=== PATIENT | female | born 1985 | race Caucasian/White ===

== ENCOUNTER 2017-12-24 21:49 | Inpatient (IN) | payer SELFPAY ==
[~2017-12-24] VITALS: Ht 175.3 cm; Wt 74.8 kg
[~2017-12-24 21:49] MED LIST: CIPR500T2 PO; PYRI200T4 PO; Z.0.NO CURRENT MEDS
[2017-12-24 21:53] VITALS: BP 128/78; PULSE 123; RESP 18; TEMP 99; O2SAT 99
--- NOTE | 2017-12-24 22:07 | PD ---
HPI Chief Complaint: Injury Time Seen by Provider: 22:00 Travel History International Travel<30 days: No Contact w/Intl Traveler<30days: No Traveled to known affect area: No History of Present Illness HPI 32-year-old female presents to the ED for evaluation of 5 day history of left foot pain. Pain is rated 6/10, worsened by weightbearing and touch. The patient endorses a small wound on the plantar aspect of the foot but can recall no acute injury. She states that the day that the pain started [place] She was seen at the [facility] 3 days ago and provided with a prescription of Bactrim. She endorses compliance with the antibiotics but states that the pain has worsened. She now complains of redness of the foot as well. She denies fever, chills, nausea, vomiting, numbness, tingling, weakness, limitations to range of motion of the extremity. Unsure of last tetanus immunization. PFSH Past Medical History Blood Disorders: No Cancer: No Cardiovascular Problems: No Diminished Hearing: No Endocrine: No Genitourinary: No Immune Disorder: No Musculoskeletal: No Neurologic: No Psychiatric: No Reproductive: Yes (OVARIAN CYST) Respiratory: No Immunizations Current: Yes ?: Not Menopausal: No : 0 Para: 0 Ovarian Cysts: Yes Past Surgical History Abdominal Surgery: Yes AICD: No Gynecologic Surgery: Yes (2005&2005 CYSTS REMOVED FROM OVARIES) Joint Replacement: No Pacemaker: No Other Surgery: Yes Social History Alcohol Use: Yes (OCC.) Tobacco Use: Yes (1PPD) Substance Use: Yes (MARIJUANA) Allergies-Medications (Allergen,Severity, Reaction): Coded Allergies: No Known Allergies (Verified , 10/22/11) Reported Meds & Prescriptions Reported Meds & Active Scripts Active Cipro (Ciprofloxacin) 500 Mg Tab 500 Mg PO BID Pyridium (Phenazopyridine HCl) 200 Mg Tab 200 Mg PO Q8HPRN Reported No Current Meds (Miscellaneous Medication) Misc Review of Systems Except as stated in HPI: all other systems reviewed are Neg Physical Exam Narrative GENERAL: Well-nourished, well-developed hirsute white female no acute distress. SKIN: Focused skin assessment warm/dry. HEAD: Normocephalic. EYES: No scleral icterus. No injection or drainage. NECK: Supple, trachea midline. No JVD or lymphadenopathy. CARDIOVASCULAR: Regular rate and rhythm without murmurs, gallops, or rubs. RESPIRATORY: Breath sounds equal bilaterally. No accessory muscle use. GASTROINTESTINAL: Abdomen soft, non-tender, nondistended. MUSCULOSKELETAL: No cyanosis, or edema. FOCUSED LEFT LOWER EXTREMITY EXAM: 2+ DP pulse. There is a puncture wound on the lateral aspect of the dorsal surface of the foot. There is surrounding tender erythema. Erythema trails up the medial aspect of the foot. Patient retains full, active, painless ROM of the extremity. BACK: Nontender without obvious deformity. No CVA tenderness. Data Data Last Documented VS Vital Signs Date Time Temp Pulse Resp B/P (MAP) Pulse Ox O2 Delivery O2 Flow Rate FiO2 12/24/17 21:53 99.0 123 18 128/78 (95) 99 Room Air Orders Orders Sepsis Workup Initiated (12/24/17 ) Complete Blood Count With Diff (12/24/17 22:03) Comprehensive Metabolic Panel (12/24/17 22:03) Lactic Acid Sepsis Protocol (12/24/17 22:03) Urinalysis - C+S If Indicated (12/24/17 22:03) Blood Culture (12/24/17 22:03) Blood Glucose (12/24/17 22:03) Ecg Monitoring (12/24/17 22:03) Iv Access Insert/Monitor (12/24/17 22:03) Oximetry (12/24/17 22:03) Sodium Chlor 0.9% 1000 Ml Inj (Ns 1000 M (12/24/17 22:15) Foot, Complete (Qyt2dkn) (12/24/17 22:03) Acetaminophen (Tylenol) (12/24/17 22:15) Tetanus/Diphtheria Tox Adult (Tetanus/Di (12/24/17 22:15) Clindamycin 900 Mg/Ns Premix (Cleocin 90 (12/24/17 22:30) Doxycycline (Vibramycin) (12/24/17 22:30) Urine Culture (12/24/17 22:25) Labs Laboratory Tests Test 12/24/17 22:25 12/24/17 22:30 Urine Color YELLOW Urine Turbidity HAZY Urine pH 6.0 Urine Specific [place] 1.029 Urine Protein 30 mg/dL Urine Glucose (UA) NEG mg/dL Urine Ketones TRACE mg/dL Urine Occult Blood SMALL Urine Nitrite NEG Urine Bilirubin NEG Urine Urobilinogen 4.0 MG/DL Urine Leukocyte Esterase TRACE Urine RBC 3 /hpf Urine WBC 8 /hpf Urine Squamous Epithelial Cells 15 /hpf Urine Amorphous Sediment OCC Urine Hyaline Casts 14 /lpf Urine Mucus FEW /lpf Microscopic Urinalysis Comment CATH-CULTURE IND White Blood Count 12.3 TH/MM3 Red Blood Count 5.15 MIL/MM3 Hemoglobin 16.0 GM/DL Hematocrit 46.6 % Mean Corpuscular Volume 90.5 FL Mean Corpuscular Hemoglobin 31.1 PG Mean Corpuscular Hemoglobin Concent 34.4 % Red Cell Distribution Width 13.7 % Platelet Count 395 TH/MM3 Mean Platelet Volume 8.6 FL Neutrophils (%) (Auto) 60.9 % Lymphocytes (%) (Auto) 24.8 % Monocytes (%) (Auto) 11.6 % Eosinophils (%) (Auto) 1.8 % Basophils (%) (Auto) 0.9 % Neutrophils # (Auto) 7.5 TH/MM3 Lymphocytes # (Auto) 3.0 TH/MM3 Monocytes # (Auto) 1.4 TH/MM3 Eosinophils # (Auto) 0.2 TH/MM3 Basophils # (Auto) 0.1 TH/MM3 CBC Comment DIFF FINAL Differential Comment MDM Medical Decision Making Medical Screen Exam Complete: Yes Emergency Medical Condition: Yes Differential Diagnosis Puncture wound versus retained foreign body versus cellulitis versus failed outpatient treatment versus sepsis versus other Narrative Course 32-year-old female presents to the ED for evaluation of 5 day history of left foot pain. The patient endorses a small wound on the plantar aspect of the foot but can recall no acute injury. Possible seawater exposure. Seen at [facility], prescribed Bactrim, compliant with no improvement of symptoms. Unsure of last tetanus immunization. Temp 99.0. Pulse 123 on arrival. On exam there is a puncture wound on the plantar surface, lateral aspect of the left foot. There is surrounding tender erythema that trails up the medial aspect of the foot. Tetanus immunization was administered. IV was established. Patient was administered 1 L normal saline, 500 mg Tylenol by mouth. Blood cultures were obtained. Patient was administered 900 mg clindamycin IV and 100 mg doxycycline by mouth to cover for marine exposure. CBC, CMP, lactic acid, UA ordered and pending. Patient has failed outpatient treatment for cellulitis. She will be admitted for observation and continued IV antibiotics. The patient is agreeable with this plan. Patient signed out to Dr. Givens at end of shift. Please see her note for disposition. Carolyn Mccormick December 24, 2017 22:07
[2017-12-24] MEDS ORDERED: TETANUS/DIPHTHERIA TOXOID ADULT 0.5 ML VIAL IM ONE (22:15)
[2017-12-24] MEDS ORDERED: ACETAMINOPHEN 500 MG CPLT PO ONE (22:15)
[2017-12-24] MEDS ORDERED: SODIUM CHLOR 0.9% 1000 ML INJ 1,000 ML IV ONE (22:15)
[2017-12-24] MEDS ORDERED: DOXYCYCLINE HYCLATE 100 MG CAP PO ONE (22:30)
[2017-12-24] MEDS ORDERED: CLINDAMYCIN 900 MG/NS PREMIX 50 ML IV ONE (22:30)
[2017-12-24 22:47] LABS: AUTOMATED NEUTROPHIL # 7.5 TH/MM3 (1.8-7.7); BASOPHIL # 0.1 TH/MM3 (0-0.2); BASOPHIL % 0.9 % (0.0-2.0); EOSINOPHIL # 0.2 TH/MM3 (0-0.4); EOSINOPHIL % 1.8 % (0.0-4.0); HEMATOCRIT 46.6 % (35.0-46.0); LYMPH % 24.8 % (9.0-44.0); MEAN CELL VOLUME 90.5 FL (80.0-100.0); MEAN CORPUSCULAR HEMOGLOBIN 31.1 PG (27.0-34.0); MEAN CORPUSCULAR HGB CONC 34.4 % (32.0-36.0); MEAN PLATELET VOLUME 8.6 FL (7.0-11.0); MONO % 11.6 % (0.0-8.0); MONOCYTE # 1.4 TH/MM3 (0-0.9); NEUT % 60.9 % (16.0-70.0); PLATELET COUNT 395 TH/MM3 (150-450); RED BLOOD COUNT 5.15 MIL/MM3 (4.00-5.30); RED CELL DISTRIBUTION WIDTH 13.7 % (11.6-17.2); WHITE BLOOD COUNT 12.3 TH/MM3 (4.0-11.0)
[2017-12-24 22:49] LABS: AMORPHOUS SEDIMENT, URINE OCC; BLOOD, URINE SMALL (NEG); GLUCOSE,URINE NEG (NEG); HYALINE CAST, URINE 14 /lpf (RARE); KETONE, URINE TRACE mg/dL (NEG); MUCUS URINE FEW /lpf (OCC); NITRITE,URINE NEG (NEG); SQUAMOUS EPITHELIAL CELL URINE 15 /hpf (0-5); URINE COLOR YELLOW (YELLW/STRAW); URINE LEUKOCYTE ESTERASE TRACE (NEG)
[2017-12-24 22:53] LABS: BILIRUBIN, URINE NEG (NEG)
[2017-12-24 23:03] VITALS: RESP 18
[2017-12-24 23:10] LABS: ALKALINE PHOSPHATASE 105 U/L (45-117); TOTAL BILIRUBIN ADULT 0.2 MG/DL (0.2-1.0); TOTAL PROTEIN 7.5 GM/DL (6.4-8.2)
[2017-12-24 23:11] LABS: ALBUMIN 3.7 GM/DL (3.4-5.0); ALT (GPT) 47 U/L (10-53); AST (GOT) 38 U/L (15-37); BICARBONATE 22.4 MEQ/L (21.0-32.0); BLOOD UREA NITROGEN 15 MG/DL (7-18); CALCIUM 9.3 MG/DL (8.5-10.1); CHLORIDE 105 MEQ/L (98-107); CREATININE 1.09 MG/DL (0.50-1.00); GLOMERULAR FILTRATION RATE 58 ML/MIN (>89); GLUCOSE,RANDOM 118 MG/DL (74-106); SODIUM (NA) 137 MEQ/L (136-145)
--- NOTE | 2017-12-24 23:27 | RADRPT ---
EXAM DATE/TIME: 12/24/2017 22:33 [facility] COMPARISON: No previous studies available for comparison. INDICATIONS : Left foot pain, possible foreign body. MEDICAL HISTORY : None. SURGICAL HISTORY : None. ENCOUNTER: Initial ACUITY: 3 days PAIN SCORE: 7/10 LOCATION: Left foot, plantar surface. FINDINGS: Two view examination of the left foot demonstrates no soft tissue swelling, dislocation, or fracture. The calcaneus is intact. Bony mineralization is normal. CONCLUSION: Negative exam. No fracture. No radiopaque foreign body. Morales Raphael MD on December 24, 2017 at 23:25 Board Certified Radiologist. This report was verified electronically.
[2017-12-24 23:51] VITALS: BP 144/68; PULSE 92; RESP 16; TEMP 98.3; O2SAT 99
--- NOTE | 2017-12-24 23:54 | PD ---
Physical Exam Narrative Please see the mid-level provider note for full history and physical. I have evaluated the patient. Patient is on day 4 of antibiotics for a wound infection. Reports pain and increased swelling despite antibiotic. If this is a possible marine water exposure skin infection. She was given doxycycline and clindamycin. She is afebrile but was tachycardic. Labs show elevated white count and UTI with urine culture and blood cultures pending. Repeat heart rate 93. Patient will be admitted to the hospital for failing outpatient antibiotics. Data Data Last Documented VS Vital Signs Date Time Temp Pulse Resp B/P (MAP) Pulse Ox O2 Delivery O2 Flow Rate FiO2 12/24/17 23:51 98.3 92 16 144/68 (93) 99 Room Air Orders Orders Sepsis Workup Initiated (12/24/17 ) Complete Blood Count With Diff (12/24/17 22:03) Comprehensive Metabolic Panel (12/24/17 22:03) Lactic Acid Sepsis Protocol (12/24/17 22:03) Urinalysis - C+S If Indicated (12/24/17 22:03) Blood Culture (12/24/17 22:03) Blood Glucose (12/24/17 22:03) Ecg Monitoring (12/24/17 22:03) Iv Access Insert/Monitor (12/24/17 22:03) Oximetry (12/24/17 22:03) Sodium Chlor 0.9% 1000 Ml Inj (Ns 1000 M (12/24/17 22:15) Acetaminophen (Tylenol) (12/24/17 22:15) Tetanus/Diphtheria Tox Adult (Tetanus/Di (12/24/17 22:15) Clindamycin 900 Mg/Ns Premix (Cleocin 90 (12/24/17 22:30) Doxycycline (Vibramycin) (12/24/17 22:30) Urine Culture (12/24/17 22:25) Foot, Limited (2vws) (12/24/17 22:03) Admit Order (Ed Use Only) (12/24/17 23:58) Labs Laboratory Tests Test 12/24/17 22:25 12/24/17 22:30 Urine Color YELLOW Urine Turbidity HAZY Urine pH 6.0 Urine Specific [place] 1.029 Urine Protein 30 mg/dL Urine Glucose (UA) NEG mg/dL Urine Ketones TRACE mg/dL Urine Occult Blood SMALL Urine Nitrite NEG Urine Bilirubin NEG Urine Urobilinogen 4.0 MG/DL Urine Leukocyte Esterase TRACE Urine RBC 3 /hpf Urine WBC 8 /hpf Urine Squamous Epithelial Cells 15 /hpf Urine Amorphous Sediment OCC Urine Hyaline Casts 14 /lpf Urine Mucus FEW /lpf Microscopic Urinalysis Comment CATH-CULTURE IND White Blood Count 12.3 TH/MM3 Red Blood Count 5.15 MIL/MM3 Hemoglobin 16.0 GM/DL Hematocrit 46.6 % Mean Corpuscular Volume 90.5 FL Mean Corpuscular Hemoglobin 31.1 PG Mean Corpuscular Hemoglobin Concent 34.4 % Red Cell Distribution Width 13.7 % Platelet Count 395 TH/MM3 Mean Platelet Volume 8.6 FL Neutrophils (%) (Auto) 60.9 % Lymphocytes (%) (Auto) 24.8 % Monocytes (%) (Auto) 11.6 % Eosinophils (%) (Auto) 1.8 % Basophils (%) (Auto) 0.9 % Neutrophils # (Auto) 7.5 TH/MM3 Lymphocytes # (Auto) 3.0 TH/MM3 Monocytes # (Auto) 1.4 TH/MM3 Eosinophils # (Auto) 0.2 TH/MM3 Basophils # (Auto) 0.1 TH/MM3 CBC Comment DIFF FINAL Differential Comment Blood Urea Nitrogen 15 MG/DL Creatinine 1.09 MG/DL Random Glucose 118 MG/DL Total Protein 7.5 GM/DL Albumin 3.7 GM/DL Calcium Level 9.3 MG/DL Alkaline Phosphatase 105 U/L Aspartate Amino Transf (AST/SGOT) 38 U/L Alanine Aminotransferase (ALT/SGPT) 47 U/L Total Bilirubin 0.2 MG/DL Sodium Level 137 MEQ/L Potassium Level 4.5 MEQ/L Chloride Level 105 MEQ/L Carbon Dioxide Level 22.4 MEQ/L Anion Gap 10 MEQ/L Estimat Glomerular Filtration Rate 58 ML/MIN Lactic Acid Level 1.9 mmol/L [facility] Supervised Visit with [place]: Yes Sepsis Criteria SIRS Criteria (2 or more): Heart rate over 90, WBC > 12478, < 4000 or > 10% bands Sepsis Criteria (SIRS+source): Infect source susp/known Diagnosis Primary Impression: Cellulitis Qualified Codes: L03.116 - Cellulitis of left lower limb Additional Impression: Sepsis Admitting Information Admitting Physician Requests: Admit Condition: Stable Qiana Givens MD December 24, 2017 23:53
[2017-12-25] MEDS ORDERED: SODIUM CHLORIDE 0.9% FLUSH 10 ML FLUSH IV FLUSH PRN (00:30)
[2017-12-25] MEDS ORDERED: NALOXONE HCL 0.4 MG/ML AMP IV PUSH PRN (00:30)
[2017-12-25] MEDS ORDERED: ONDANSETRON HCL 4 MG/2 ML VIAL IVP PRN (00:30)
[2017-12-25] MEDS: SODIUM CHLOR 0.9% 1000 ML INJ 1,000 ML IV SCH ×2 (01:03→09:11)
[2017-12-25] MEDS: ACETAMINOPHEN 325 MG TAB PO PRN ×2 (01:07→06:55)
--- NOTE | 2017-12-25 02:15 | HHI.HP ---
[facility] No Primary Care Physician Admission Diagnosis sepsis, cellulitis failed outpatient meds Diagnoses: Travel History International Travel<30 Days: No Contact w/Intl Traveler <30 Da: No Traveled to Known Affected Are: No History of Present Illness 32-year-old female presents to the emergency department for evaluation of acutely worsening left foot pain. The patient reports she sustained an injury to her foot on Friday but is unsure of exactly what happened. She reports she was out on a boat that day and later on in the evening she developed redness and swelling around what appears to be a puncture site on the bottom of the left foot. The patient went to [facility] where she was given Bactrim. Despite compliance with the medication, the patient's foot continued to swell and currently is much more painful than prior. She reports she cannot put weight on it and has to walk on the ball of her foot. No chest pain or shortness of breath. No fever/chills. No abdominal pain. No nausea/vomiting/ diarrhea. No weakness/fatigue. Review of Systems Except as stated in HPI: all other systems reviewed are Neg Past Family Social History Past Medical History None Past Surgical History Laparotomy secondary to trauma Reported Medications Reported Meds & Active Scripts Active Cipro (Ciprofloxacin) 500 Mg Tab 500 Mg PO BID Pyridium (Phenazopyridine HCl) 200 Mg Tab 200 Mg PO Q8HPRN Reported No Current Meds (Miscellaneous Medication) Misc Allergies: Coded Allergies: No Known Allergies (Verified Adverse Reaction, Unknown, 12/25/17) Family History Negative for CAD/DM Social History Smokes 1 pack per day. Occasional alcohol. Positive marijuana. Physical Exam Vital Signs Vital Signs Date Time Temp Pulse Resp B/P (MAP) Pulse Ox O2 Delivery O2 Flow Rate FiO2 12/25/17 01:51 16 12/25/17 01:50 12/25/17 00:03 18 12/24/17 23:51 98.3 92 16 144/68 (93) 99 Room Air 12/24/17 23:03 18 12/24/17 21:53 99.0 123 18 128/78 (95) 99 Room Air Physical Exam GENERAL: female lying in bed SKIN: Area of erythema and swelling but is warm to the touch on the plantar aspect of the left foot with small puncture wound on the lateral side. HEAD: Atraumatic. Normocephalic. No temporal or scalp tenderness. EYES: Pupils equal round and reactive. Extraocular motions intact. No scleral icterus. No injection or drainage. ENT: Nose without bleeding, purulent drainage or septal hematoma. Throat without erythema, tonsillar hypertrophy or exudate. Uvula midline. Airway patent. NECK: Trachea midline. No JVD or lymphadenopathy. Supple, nontender, no meningeal signs. CARDIOVASCULAR: Regular rate and rhythm without murmurs, gallops, or rubs. RESPIRATORY: Clear to auscultation. Breath sounds equal bilaterally. No wheezes , rales, or rhonchi. GASTROINTESTINAL: Abdomen soft, non-tender, nondistended. No hepato-splenomegaly , or palpable masses. No guarding. MUSCULOSKELETAL: Extremities without clubbing, cyanosis, or edema. No joint tenderness, effusion, or edema noted. No calf tenderness. NEUROLOGICAL: Awake and alert. Cranial nerves II through XII intact. Motor and sensory grossly within normal limits. Normal speech. Laboratory Laboratory Tests Test 12/24/17 22:25 12/24/17 22:30 Urine Color YELLOW Urine Turbidity HAZY Urine pH 6.0 Urine Specific [place] 1.029 Urine Protein 30 Urine Glucose (UA) NEG Urine Ketones TRACE Urine Occult Blood SMALL Urine Nitrite NEG Urine Bilirubin NEG Urine Urobilinogen 4.0 Urine Leukocyte Esterase TRACE Urine RBC 3 Urine WBC 8 Urine Squamous Epithelial Cells 15 Urine Amorphous Sediment OCC Urine Hyaline Casts 14 Urine Mucus FEW Microscopic Urinalysis Comment CATH-CULTURE IND White Blood Count 12.3 Red Blood Count 5.15 Hemoglobin 16.0 Hematocrit 46.6 Mean Corpuscular Volume 90.5 Mean Corpuscular Hemoglobin 31.1 Mean Corpuscular Hemoglobin Concent 34.4 Red Cell Distribution Width 13.7 Platelet Count 395 Mean Platelet Volume 8.6 Neutrophils (%) (Auto) 60.9 Lymphocytes (%) (Auto) 24.8 Monocytes (%) (Auto) 11.6 Eosinophils (%) (Auto) 1.8 Basophils (%) (Auto) 0.9 Neutrophils # (Auto) 7.5 Lymphocytes # (Auto) 3.0 Monocytes # (Auto) 1.4 Eosinophils # (Auto) 0.2 Basophils # (Auto) 0.1 CBC Comment DIFF FINAL Differential Comment Blood Urea Nitrogen 15 Creatinine 1.09 Random Glucose 118 Total Protein 7.5 Albumin 3.7 Calcium Level 9.3 Alkaline Phosphatase 105 Aspartate Amino Transf (AST/SGOT) 38 Alanine Aminotransferase (ALT/SGPT) 47 Total Bilirubin 0.2 Sodium Level 137 Potassium Level 4.5 Chloride Level 105 Carbon Dioxide Level 22.4 Anion Gap 10 Estimat Glomerular Filtration Rate 58 Lactic Acid Level 1.9 Date/Time Source Procedure Growth Status 12/24/17 22:30 Blood Peripheral Aerobic Blood Culture Pending Received 12/24/17 22:30 Blood Peripheral Anaerobic Blood Culture Pending Received 12/24/17 22:25 Urine Catheterized Urine Urine Culture Pending Received Result Diagram: 12/24/17222912/24/172229 Earle VTE Risk Assessment Earle VTE Risk Assessment: No/Low Risk (score <= 1) Caprini Risk Assessment Model Point Value = 1 Point Value = 2 Point Value = 3 Point Value = 5 Age 41-60 Minor surgery BMI > 25 kg/m2 Swollen legs Varicose veins or History of unexplained or recurrent spontaneous Oral contraceptives or hormone replacement Sepsis (< 1 month) Serious lung disease, including pneumonia (< 1 month) Abnormal pulmonary function Acute myocardial infarction Congestive heart failure (< 1 month) History of inflammatory bowel disease Medical patient at bed rest Age 61-74 Arthroscopic surgery Major open surgery (> 45 min) Laparoscopic surgery (> 45 min) Malignancy Confined to bed (> 72 hours) Immobilizing plaster cast Central venous access Age >= 75 History of VTE Family history of VTE Factor V Leiden Prothrombin [id number] Lupus anticoagulant Anticardiolipin antibodies Elevated serum homocysteine Heparin-induced thrombocytopenia Other congenital or acquired thrombophilia Stroke (< 1 month) Elective arthroplasty Hip, pelvis, or leg fracture Acute spinal cord injury (< 1 month) Prophylaxis Regimen Total Risk Factor Score Risk Level Prophylaxis Regimen 0-1 Low Early ambulation 2 Moderate Order ONE of the following: *Sequential Compression Device (SCD) *Heparin 5000 units SQ BID 3-4 Higher Order ONE of the following medications: *Heparin 5000 units SQ TID *Enoxaparin/Lovenox 40 mg SQ daily (WT < 150 kg, CrCl > 30 mL/min) *Enoxaparin/Lovenox 30 mg SQ daily (WT < 150 kg, CrCl > 10-29 mL/min) *Enoxaparin/Lovenox 30 mg SQ BID (WT < 150 kg, CrCl > 30 mL/min) AND/OR *Sequential Compression Device (SCD) 5 or more Highest Order ONE of the following medications: *Heparin 5000 units SQ TID (Preferred with Epidurals) *Enoxaparin/Lovenox 40 mg SQ daily (WT < 150 kg, CrCl > 30 mL/min) *Enoxaparin/Lovenox 30 mg SQ daily (WT < 150 kg, CrCl > 10-29 mL/min) *Enoxaparin/Lovenox 30 mg SQ BID (WT < 150 kg, CrCl > 30 mL/min) AND *Sequential Compression Device (SCD) Assessment and Plan Assessment and Plan Assessment/plan: 1. Cellulitis but failed outpatient treatment/sepsis Patient with leukocytosis and tachycardia Status post Bactrim 4 days Cipro/doxy for possible marine exposure coverage Ultrasound of the foot pending to rule out deep abscess Blood cultures pending IV fluid hydration 2. UTI Antibiotics as above UA consistent with urinary tract infection Urine culture pending FEN Regular diet Electrolytes: Monitor and replete as needed NS at 100 cc/hour Physician Certification 2 Midnight Certification Type: Admission for Inpatient Services Order for Inpatient Services The services are ordered in accordance with Medicare regulations or non- Medicare payer requirements, as applicable. In the case of services not specified as inpatient-only, they are appropriately provided as inpatient services in accordance with the 2-midnight benchmark. Estimated LOS (days): 2 2 days is the estimated time the patient will need to remain in the hospital, assuming treatment plan goals are met and no additional complications. Post-Hospital Plan: Not yet determined Erinn Fernandes MD December 25, 2017 02:15
[2017-12-25 04:00] VITALS: BP 102/50; PULSE 67; RESP 16; TEMP 97.6; O2SAT 97
[2017-12-25 04:15] LABS: AUTOMATED NEUTROPHIL # 6.3 TH/MM3 (1.8-7.7); BASOPHIL # 0.1 TH/MM3 (0-0.2); BASOPHIL % 0.9 % (0.0-2.0); EOSINOPHIL # 0.3 TH/MM3 (0-0.4); EOSINOPHIL % 2.2 % (0.0-4.0); HEMATOCRIT 41.7 % (35.0-46.0); HEMOGLOBIN 14.5 GM/DL (11.6-15.3); LYMPH % 32.3 % (9.0-44.0); LYMPHOCYTE # 3.9 TH/MM3 (1.0-4.8); MEAN CELL VOLUME 90.8 FL (80.0-100.0); MEAN CORPUSCULAR HEMOGLOBIN 31.6 PG (27.0-34.0); MEAN CORPUSCULAR HGB CONC 34.8 % (32.0-36.0); MEAN PLATELET VOLUME 8.6 FL (7.0-11.0); MONO % 12.8 % (0.0-8.0); MONOCYTE # 1.6 TH/MM3 (0-0.9); NEUT % 51.8 % (16.0-70.0); PLATELET COUNT 331 TH/MM3 (150-450); RED BLOOD COUNT 4.59 MIL/MM3 (4.00-5.30); RED CELL DISTRIBUTION WIDTH 13.6 % (11.6-17.2); WHITE BLOOD COUNT 12.2 TH/MM3 (4.0-11.0)
[2017-12-25 05:07] LABS: ALBUMIN 3.2 GM/DL (3.4-5.0); ALKALINE PHOSPHATASE 91 U/L (45-117); ALT (GPT) 56 U/L (10-53); AST (GOT) 56 U/L (15-37); BICARBONATE 23.4 MEQ/L (21.0-32.0); BLOOD UREA NITROGEN 13 MG/DL (7-18); CALCIUM 8.5 MG/DL (8.5-10.1); CHLORIDE 108 MEQ/L (98-107); GLOMERULAR FILTRATION RATE 73 ML/MIN (>89); GLUCOSE,RANDOM 110 MG/DL (74-106); SODIUM (NA) 140 MEQ/L (136-145); TOTAL BILIRUBIN ADULT 0.2 MG/DL (0.2-1.0); TOTAL PROTEIN 6.6 GM/DL (6.4-8.2)
[2017-12-25 08:00] VITALS: BP 125/85; PULSE 74; RESP 17; TEMP 97.3; O2SAT 98
[2017-12-25] MEDS: SODIUM CHLORIDE 0.9% FLUSH 10 ML FLUSH IV FLUSH SCH ×2 (09:00→20:07)
[2017-12-25] MEDS: DOXYCYCLINE HYCLATE 100 MG TAB PO SCH ×2 (09:06→20:07)
[2017-12-25] MEDS: CLINDAMYCIN 600 MG/NS PREMIX 50 ML IV SCH ×2 (09:07→16:24)
--- NOTE | 2017-12-25 09:14 | RADRPT ---
EXAM DATE/TIME: 12/25/2017 08:14 [facility] COMPARISON: No previous studies available for comparison. INDICATIONS : Left foot fluid collection. MEDICAL HISTORY : Ovarian cysts. Tobacco use. SURGICAL HISTORY : Bowel surgery. Ovarian cysts removed. ENCOUNTER: Initial ACUITY: 1 day PAIN SCORE: 0/10 LOCATION: Left foot. AREA EVALUATED: Bottom of left foot. FINDINGS: The plantar soft tissues of the foot was scanned. There is soft tissue thickening and a focal fluid collection with irregular margins deep to the subcutaneous tissues which measures 1.0 x 0.4 x 0.5 cm. No internal or surrounding flow seen by color Doppler. CONCLUSION: 5 x 10 mm fluid collection in the plantar soft tissues of the foot. Bobby Lambert MD on December 25, 2017 at 9:11 Board Certified Radiologist. This report was verified electronically.
[2017-12-25] MEDS ORDERED: LORazepam 1 MG TAB PO PRN (10:00)
[2017-12-25] MEDS ORDERED: LORazepam 2 MG TAB PO PRN (10:00)
[2017-12-25] MEDS ORDERED: ALUMINUM/MAGNESIUM/SIMETH 30 ML CUP PO PRN (10:00)
[2017-12-25] MEDS ORDERED: LORazepam 2 MG/ML VIAL IV PUSH PRN ×4 (10:00)
[2017-12-25] MEDS ORDERED: ONDANSETRON HCL 4 MG/2 ML VIAL IV PUSH PRN (10:00)
[2017-12-25] MEDS ORDERED: FLUMAZENIL 0.5 MG/5 ML VIAL IV PUSH PRN (10:00)
[2017-12-25] MEDS ORDERED: ACETAMINOPHEN 325 MG TAB PO PRN (10:00)
--- NOTE | 2017-12-25 10:07 | HHI.PR ---
Subjective Remarks Follow up Left foot cellulitis/abscess December 25, 2017-patient seen and examined, still complaining of left foot pain. Currently afebrile. States she smokes 1 pack per day and drinks daily 1/3 bottle of hard liquor Objective Vitals Vital Signs Date Time Temp Pulse Resp B/P (MAP) Pulse Ox O2 Delivery O2 Flow Rate FiO2 12/25/17 08:00 97.3 74 17 125/85 (98) 98 12/25/17 04:00 97.6 67 16 102/50 (67) 97 12/25/17 01:51 16 12/25/17 01:50 12/25/17 00:03 18 12/24/17 23:51 98.3 92 16 144/68 (93) 99 Room Air 12/24/17 23:03 18 12/24/17 21:53 99.0 123 18 128/78 (95) 99 Room Air I/O 12/24/17 12/24/17 12/24/17 12/25/17 12/25/17 12/25/17 07:00 15:00 23:00 07:00 15:00 23:00 Intake Total 1050 ml Balance 1050 ml Intake Oral 0 ml IV Total 1050 ml # Voids 2 # Bowel Movements 0 Result Diagram: 12/25/17 0358 12/25/17 0358 Imaging Last Impressions Lower Extremity Ultrasound 12/25/17 0000 Signed Impressions: Service Date/Time: December 08:14 - CONCLUSION: 5 x 10 mm fluid collection in the plantar soft tissues of the foot. Bobby Lambert MD Foot X-Ray 12/24/172202 Signed Impressions: Service Date/Time: Sunday, December 24, 2017 22:33 - CONCLUSION: Negative exam. No fracture. No radiopaque foreign body. Morales Raphael MD Objective Remarks GENERAL: NAD SKIN: Warm and dry. hard induration plantar left foot with some surrounding erythema HEAD: Normocephalic. EYES: No scleral icterus. No injection or drainage. NECK: Supple, trachea midline. No JVD or lymphadenopathy. CARDIOVASCULAR: Regular rate and rhythm without murmurs, gallops, or rubs. RESPIRATORY: Breath sounds equal bilaterally. No accessory muscle use. GASTROINTESTINAL: Abdomen soft, non-tender, nondistended. MUSCULOSKELETAL: No cyanosis, or edema. BACK: Nontender without obvious deformity. No CVA tenderness. A/P Problem List: (1) Sepsis ICD Code: A41.9 - Sepsis, unspecified organism Status: Acute (2) Foot abscess, left ICD Code: L02.612 - Cutaneous abscess of left foot (3) Cellulitis ICD Code: L03.90 - Cellulitis, unspecified Status: Acute (4) Alcohol abuse ICD Code: F10.10 - Alcohol abuse, uncomplicated (5) Tobacco abuse ICD Code: Z72.0 - Tobacco use Assessment and Plan 32-year-old female with Sepsis 2/2 Left foot abscess/cellulitis +UTI? Currently on IV antibiotics including clindamycin and doxy Cultures pending Left foot abscess/cellulitis Foot ultrasound report noted and reviewed with finding of 5 x 10 mm fluid collection in the plantar soft tissue Will consult Podiatry for evaluation for possible I&D Currently on IV antibiotics including clindamycin and doxy Abnormal UA Currently on Abx pending urine culture Tobaccoism Tobacco counselling cessation provided Start Nicotine Patch Alcohol abuse Alcohol cessation counselling provided Start Rally pack, CIWA Problem Qualifiers (1) Cellulitis: Qualified Codes: L03.116 - Cellulitis of left lower limb Kimo Barbosa MD December 25, 2017 10:07
[2017-12-25] MEDS: KETOROLAC TROMETHAMINE 10 MG TAB PO PRN ×2 (11:24→17:23)
[2017-12-25] MEDS: NICOTINE 21 MG/24 HR PATCH T-DERMAL SCH (11:26)
[2017-12-25 12:00] VITALS: BP 128/70; PULSE 84; RESP 17; TEMP 97.8; O2SAT 100
--- NOTE | 2017-12-25 14:03 | MB ---
cc: Joseline Witt DPM DATE: 12/25/2017 CHIEF COMPLAINT: Left foot abscess. HISTORY OF PRESENT ILLNESS: Ms. Rodriguez states that she sustained a foot injury about 4 or 5 days ago, but is unsure how it happened. She failed outpatient antibiotics of Bactrim. She states that she has been compliant with the medication, but the pain has been getting worse and worse. She states that since being admitted and given IV antibiotics and anti-inflammatories, she has had some relief from the pain. She denies any nausea, vomiting, fever, headaches or chills. PAST MEDICAL HISTORY: Negative. PAST SURGICAL HISTORY: None MEDICATIONS: Please see list. ALLERGIES: NO KNOWN DRUG ALLERGIES. FAMILY HISTORY: Noncontributory. SOCIAL HISTORY: The patient does smoke a pack per day, drinks alcohol on a regular basis and utilized marijuana. VITAL SIGNS: Temperature is 97.8, pulse 84, respiratory rate 17, blood pressure 128/70, pulse oximetry 100% O2 on room air. LABORATORY AND DIAGNOSTIC DATA: White count 12.2, hemoglobin 14.5, hematocrit 41.7, platelets 331. Sodium 140, potassium 4.2, chloride 108, carbon dioxide 23.4, BUN 13. X-rays negative for any signs of foreign body, gas in the soft tissue or cortical erosion. An ultrasound does show a discrete fluid collection of 1 cm x 0.4 cm x 0.5 cm. PHYSICAL EXAMINATION: Shows palpable DP and PT pulses. Capillary refill time less than 3 seconds. Gross sensation is intact. Right foot is unremarkable. Left foot, plantar laterally, there is a finite swelling of soft tissue with a pinpoint opening consistent with a puncture wound. No drainage at this time. It has severe tenderness to touch. ASSESSMENT AND PLAN: Left foot abscess. 1. The patient is unfortunately too tender to perform an incision and drainage at bedside. We will plan for drainage in the operating room tomorrow. 2. N.p.o. after midnight. 3. The procedure was explained to the patient in detail, with no guarantees provided. All questions were answered appropriately. Thank you for this consultation. Joseline Witt DPM LMW/SB , 01:48 PM , 02:02 PM FAITH
[2017-12-25 16:00] VITALS: BP 129/62; PULSE 72; RESP 16; TEMP 98; O2SAT 97
[2017-12-25 20:00] VITALS: BP 118/58; PULSE 66; RESP 20; TEMP 97.7; O2SAT 96
[2017-12-25] MEDS ORDERED: TEMAZEPAM 15 MG CAP PO PRN (21:00)
[2017-12-25] MEDS ORDERED: traMADol HCL 50 MG TAB PO ONE (21:30)
[2017-12-26] VITALS: BP 130/63; PULSE 68; PULSE 78; RESP 20; TEMP 97.7; O2SAT 95
[2017-12-26] MEDS: CLINDAMYCIN 600 MG/NS PREMIX 50 ML IV SCH ×4 (00:07→22:29)
[2017-12-26] MEDS ORDERED: POVIDONE IODINE 5% (ANTISEPSIS KIT) 4 APPLICATIONS EACH NARE PRN (00:45)
[2017-12-26] MEDS ORDERED: LACTATED RINGER'S 1000 ML IV PRN (00:45)
[2017-12-26] MEDS ORDERED: CHLORHEXIDINE GLUCONATE 2 % 1 PACK (2 CLOTHS) TOPICAL PRN (00:45)
[2017-12-26] MEDS: KETOROLAC TROMETHAMINE 10 MG TAB PO PRN ×3 (01:44→17:25)
[2017-12-26 04:00] VITALS: BP 113/74; PULSE 70; RESP 20; TEMP 97.4; O2SAT 97
[2017-12-26 07:25] LABS: AUTOMATED NEUTROPHIL # 6.5 TH/MM3 (1.8-7.7); BASOPHIL # 0.1 TH/MM3 (0-0.2); BASOPHIL % 0.7 % (0.0-2.0); EOSINOPHIL # 0.3 TH/MM3 (0-0.4); EOSINOPHIL % 2.8 % (0.0-4.0); HEMATOCRIT 41.8 % (35.0-46.0); HEMOGLOBIN 14.5 GM/DL (11.6-15.3); LYMPH % 22.5 % (9.0-44.0); LYMPHOCYTE # 2.3 TH/MM3 (1.0-4.8); MEAN CELL VOLUME 91.2 FL (80.0-100.0); MEAN CORPUSCULAR HEMOGLOBIN 31.6 PG (27.0-34.0); MEAN CORPUSCULAR HGB CONC 34.7 % (32.0-36.0); MEAN PLATELET VOLUME 8.5 FL (7.0-11.0); MONO % 11.3 % (0.0-8.0); MONOCYTE # 1.2 TH/MM3 (0-0.9); NEUT % 62.7 % (16.0-70.0); PLATELET COUNT 307 TH/MM3 (150-450); RED BLOOD COUNT 4.58 MIL/MM3 (4.00-5.30); RED CELL DISTRIBUTION WIDTH 13.9 % (11.6-17.2); WHITE BLOOD COUNT 10.4 TH/MM3 (4.0-11.0)
[2017-12-26 07:50] LABS: BICARBONATE 23.6 MEQ/L (21.0-32.0); CALCIUM 8.9 MG/DL (8.5-10.1); CREATININE 0.62 MG/DL (0.50-1.00)
[2017-12-26 08:00] VITALS: BP 118/59; PULSE 63; RESP 18; TEMP 97.4; O2SAT 100
[2017-12-26] MEDS: DOXYCYCLINE HYCLATE 100 MG TAB PO SCH ×2 (08:00→22:29)
[2017-12-26] MEDS: REMOVE OLD PATCH T-DERMAL SCH (08:00)
[2017-12-26] MEDS: NICOTINE 21 MG/24 HR PATCH T-DERMAL SCH (08:00)
[2017-12-26] MEDS: SODIUM CHLORIDE 0.9% FLUSH 10 ML FLUSH IV FLUSH SCH ×2 (08:01→21:00)
[2017-12-26 12:00] VITALS: BP 146/75; PULSE 74; RESP 17; TEMP 97.4; O2SAT 100
[2017-12-26] MEDS ORDERED: VANCOMYCIN HCL 1000 MG VIAL ONE (14:08)
[2017-12-26] MEDS ORDERED: BUPIVACAINE HCL PF 0.5% 30 ML VIAL ONE (14:08)
[2017-12-26] MEDS ORDERED: LIDOCAINE HCL 1% 50 ML VIAL ONE (14:09)
[2017-12-26] MEDS ORDERED: ONDANSETRON HCL 4 MG/2 ML VIAL IV ONE (15:16)
[2017-12-26] MEDS ORDERED: PROPOFOL 200 MG/20 ML AMP IV ONE (15:16)
[2017-12-26] MEDS ORDERED: LIDOCAINE HCL 1% PF 5 ML SYRINGE OTHER ONE (15:16)
[2017-12-26] MEDS ORDERED: DEXAMETHASONE SOD PHOS 4 MG/ML VIAL IV ONE (15:16)
--- NOTE | 2017-12-26 15:48 | HHI.PR ---
Subjective Remarks Patient seen in preop. Agree with planned surgical intervention. No other questions or concerns at this time. Patient denies any N,V,F,Ch. Objective Vital Signs Date Time Temp Pulse Resp B/P (MAP) Pulse Ox O2 Delivery O2 Flow Rate FiO2 12/26/17 12:00 97.4 74 17 146/75 (98) 100 12/26/17 08:00 97.4 63 18 118/59 (78) 100 12/26/17 04:00 97.4 70 20 113/74 (87) 97 12/26/17 02:44 18 12/26/17 00:00 97.7 78 20 130/63 (85) 95 12/26/17 00:00 68 12/25/17 22:54 17 12/25/17 20:00 97.7 66 20 118/58 (78) 96 12/25/17 16:00 98.0 72 16 129/62 (84) 97 I/O 12/25/17 12/25/17 12/25/17 12/26/17 12/26/17 12/26/17 07:00 15:00 23:00 07:00 15:00 23:00 Intake Total 1050 ml 269 ml 1490 ml 290 ml 50 ml Balance 1050 ml 269 ml 1490 ml 290 ml 50 ml Intake Oral 0 ml 1440 ml 240 ml IV Total 1050 ml 269 ml 50 ml 50 ml 50 ml # Voids 2 10 3 # Bowel Movements 0 1 Result Diagram: 12/26/17 0707 12/26/17 0707 Imaging Last Impressions Lower Extremity Ultrasound 12/25/17 0000 Signed Impressions: Service Date/Time: December 08:14 - CONCLUSION: 5 x 10 mm fluid collection in the plantar soft tissues of the foot. Bobby Lambert MD Foot X-Ray 12/24/172202 Signed Impressions: Service Date/Time: Sunday, December 24, 2017 22:33 - CONCLUSION: Negative exam. No fracture. No radiopaque foreign body. Morales Raphael MD Other Results Microbiology Date/Time Source Procedure Growth Status 12/24/17 22:30 Blood Peripheral Aerobic Blood Culture - Preliminary NO GROWTH IN 2 DAYS Resulted 12/24/17 22:30 Blood Peripheral Anaerobic Blood Culture - Preliminary NO GROWTH IN 2 DAYS Resulted 12/24/17 22:25 Urine Catheterized Urine Urine Culture - Final 50-100,000 CFU/ML MIXED GRAM POSITIVE... 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 DP/PT palpable 2/4. +edema noted to left foot and ankle. Neuro: Gross sensation intact. No hyperalgesia noted to left foot. Derm: Plantar lateral left foot abscess noted with no drainage. Fluctuance noted with no crepitus present to plantar abscess. Surrounding erythema to the left lateral plantar foot abscess. MSK: No gross osseous deformities. Tenderness to palpation to left foot at site of abscess. Medications and IVs Current Medications Medications (Trade) Dose Ordered Sig/Johanna Route Start Time Stop Time Status Last Admin Clindamycin/ Sodium Chloride 50 ml @ 100 mls/hr Q8H IV 12/25/17 08:00 12/26/17 08:00 (Vibratab) 100 mg Q12HR PO 12/25/17 09:00 12/26/17 08:00 (NS Flush) 2 ml UNSCH PRN IV FLUSH 12/25/17 00:30 (NS Flush) 2 ml BID IV FLUSH 12/25/17 09:00 12/26/17 08:01 (Narcan Inj) 0.4 mg UNSCH PRN IV PUSH 12/25/17 00:30 (Toradol) 10 mg Q6H PRN PO 12/25/17 10:00 12/30/17 09:59 12/26/17 08:00 (Habitrol 21 Mg Patch.24 Hr) 1 patch DAILY T-DERMAL 12/25/17 10:00 12/26/17 08:00 Miscellaneous Information 1 DAILY T-DERMAL 12/26/17 09:00 12/26/17 08:00 (Romazicon Inj) 0.2 mg Q1M PRN IV PUSH 12/25/17 10:00 (Ativan) 1 mg Q4H PRN PO 12/25/17 10:00 (Ativan Inj) 1 mg Q4H PRN IV PUSH 12/25/17 10:00 (Ativan) 2 mg Q2H PRN PO 12/25/17 10:00 (Ativan Inj) 2 mg Q2H PRN IV PUSH 12/25/17 10:00 (Ativan Inj) 2 mg Q1H PRN IV PUSH 12/25/17 10:00 (Ativan Inj) 2 mg Q15M PRN IV PUSH 12/25/17 10:00 (Tylenol) 650 mg Q4H PRN PO 12/25/17 10:00 (Zofran Inj) 4 mg Q6H PRN IV PUSH 12/25/17 10:00 (Mag-Al Plus Susp Liq) 30 ml Q6H PRN PO 12/25/17 10:00 (Restoril) 15 mg HS PRN PO 12/25/17 21:00 12/25/17 21:53 Lactated Ringer's 1,000 ml @ 30 mls/hr Q24H PRN IV 12/26/17 00:45 12/29/17 00:44 (Betadine 5% Antisepsis Kit) 1 applic DIAGNOSTIC MEDICAL SONOGRAPHER PRN EACH NARE 12/26/17 00:45 12/29/17 00:44 (Chlorhexidine 2% Cloth) 3 pack DIAGNOSTIC MEDICAL SONOGRAPHER PRN TOPICAL 12/26/17 00:45 12/29/17 00:44 Assessment and Plan Assessment and Plan 32 year old female with left plantar foot abscess Patient examined and evaluated with all questions answered Consent signed Left foot marked She has remained NPO after midnight Understands all risks, benefits, complications, alternatives associated with procedure Anticipate DC 2-3 days Jessica Henderson DPM December 26, 2017 15:48
[2017-12-26] MEDS ORDERED: DO NOT ADM ANY ANTICOAGULANT DRUGS PRN (16:31)
[2017-12-26] MEDS ORDERED: MORPHINE SULFATE 4 MG/ML INJ ONE (16:37)
[2017-12-26] MEDS ORDERED: MIDAZOLAM HCL 2 MG/2 ML VIAL ONE (16:37)
--- NOTE | 2017-12-26 16:40 | HHI.PR ---
Immediate Post Op Note Procedure Date: December 26, 2017 Pre Op Diagnosis: (1) Foot abscess, left Post Op Diagnosis: (1) Foot abscess, left Surgeon: Jessica Henderson Etiology Teacher(s): None Procedure: Left foot incision and drainage Findings: None Additional Information: None Complications: None Specimen(s) removed: None; Deep culture obtained Estimated blood loss: 5cc Anesthesia: General Drains: None IVF Patient to: PACU Patient Condition: Good Jessica Henderson DPM December 26, 2017 16:40
[2017-12-26] MEDS ORDERED: Post-op Orders (for Pharmacy) XX ONE (16:45)
[2017-12-26] MEDS ORDERED: *ONDANSETRON 4 MG VIAL PERIprocedural Use ONLY ONE (16:54)
--- NOTE | 2017-12-26 17:06 | MR ---
cc: Jessica Henderson DPM DATE: 12/26/2017 SURGEON: Jessica Henderson DPM SILK WORKER: None. PREOPERATIVE DIAGNOSIS: Left foot abscess. POSTOPERATIVE DIAGNOSIS: Left foot abscess. PROCEDURE PERFORMED: Left foot incision and drainage. ANESTHESIA: General with local infiltrative 15 mL of 0.5% Marcaine plain. HEMOSTASIS: None. ESTIMATED BLOOD LOSS: 5 mL. MATERIALS: 2-0 Prolene. INJECTABLES: None. COMPLICATIONS: None. INDICATIONS FOR PROCEDURE: The patient is a 32-year-old female with a left foot plantar abscess that states she may have stepped on something while [place] the boat. She does not recall what she stepped on. No foreign body located on x-ray. There is a significant fluid collection to the plantar lateral aspect of left foot with tenting of skin and notable fluctuance, no crepitance was noted and decision was made for incision and drainage in the OR, as the patient could not tolerate bedside incision and drainage. The patient understands all risks, benefits, and complications associated with procedure and she would like to proceed with surgical intervention at this point. DESCRIPTION OF PROCEDURE: The patient was brought back to the operating room, placed on the operating room table in the supine position. General anesthesia was then induced. Left foot was prepped and draped in the usual sterile fashion. The 15 mL of 0.5% Marcaine plain were then infiltrated about the plantar left foot. A #15 blade was utilized to make a 2 cm incision along the plantar lateral abscess; 10 mL of purulent drainage were noted. Deep culture was taken. A hemostat was utilized to evacuate a plantar abscess, which was tunneling medially into the plantar mid foot. This site was then copiously irrigated with 3 liters of normal saline. Additional purulent drainage was noted and copious irrigation was performed again. The site was then closed loosely after it was packed with 1/4-inch plain packing with 2-0 Prolene. Adaptic, 4 x 4s, cast padding, ABD, Gallito applied to left foot. The patient tolerated the procedure and anesthesia well and was transferred to the PACU from OR with vital signs stable and neurovascular status intact to the left foot. FREDIS Rivera/KD , 04:47 PM , 05:05 PM
--- NOTE | 2017-12-26 19:02 | HHI.PR ---
Subjective Remarks c/o left pain Denies fevers/chills. Objective Vitals Vital Signs Date Time Temp Pulse Resp B/P (MAP) Pulse Ox O2 Delivery O2 Flow Rate FiO2 12/26/17 16:32 97.9 70 16 123/64 (83) 98 Room Air 12/26/17 16:30 90 16 120/75 (90) 100 Room Air 12/26/17 16:28 97.7 84 16 120/81 (94) 100 12/26/17 12:00 97.4 74 17 146/75 (98) 100 12/26/17 08:00 97.4 63 18 118/59 (78) 100 12/26/17 04:00 97.4 70 20 113/74 (87) 97 12/26/17 02:44 18 12/26/17 00:00 97.7 78 20 130/63 (85) 95 12/26/17 00:00 68 12/25/17 22:54 17 12/25/17 20:00 97.7 66 20 118/58 (78) 96 I/O 12/25/17 12/25/17 12/25/17 12/26/17 12/26/17 12/26/17 07:00 15:00 23:00 07:00 15:00 23:00 Intake Total 1050 ml 269 ml 1490 ml 290 ml 50 ml 980 ml Output Total 5 ml Balance 1050 ml 269 ml 1490 ml 290 ml 50 ml 975 ml Intake Oral 0 ml 1440 ml 240 ml 480 ml IV Total 1050 ml 269 ml 50 ml 50 ml 50 ml Other 500 ml Output Estimated Blood Loss 5 ml # Voids 2 10 3 5 # Bowel Movements 0 1 0 Result Diagram: 12/26/17 0707 12/26/17 0707 Imaging Last Impressions Lower Extremity Ultrasound 12/25/17 0000 Signed Impressions: Service Date/Time: December 08:14 - CONCLUSION: 5 x 10 mm fluid collection in the plantar soft tissues of the foot. Bobby Lambert MD Foot X-Ray 12/24/172202 Signed Impressions: Service Date/Time: Sunday, December 24, 2017 22:33 - CONCLUSION: Negative exam. No fracture. No radiopaque foreign body. Morales Raphael MD Objective Remarks GENERAL: NAD SKIN: Warm and dry. Covered by dressing and cling and hause which is C/D/I HEAD: Normocephalic. EYES: No scleral icterus. No injection or drainage. NECK: Supple, trachea midline. No JVD or lymphadenopathy. CARDIOVASCULAR: Regular rate and rhythm without murmurs, gallops, or rubs. RESPIRATORY: Breath sounds equal bilaterally. No accessory muscle use. GASTROINTESTINAL: Abdomen soft, non-tender, nondistended. MUSCULOSKELETAL: No cyanosis, or edema. BACK: Nontender without obvious deformity. No CVA tendernes Medications and IVs Current Medications Medications (Trade) Dose Ordered Sig/Johanna Route Start Time Stop Time Status Last Admin Clindamycin/ Sodium Chloride 50 ml @ 100 mls/hr Q8H IV 12/25/17 08:00 12/27/17 08:46 (Vibratab) 100 mg Q12HR PO 12/25/17 09:00 12/27/17 08:46 (NS Flush) 2 ml UNSCH PRN IV FLUSH 12/25/17 00:30 (NS Flush) 2 ml BID IV FLUSH 12/25/17 09:00 12/27/17 08:49 (Narcan Inj) 0.4 mg UNSCH PRN IV PUSH 12/25/17 00:30 (Toradol) 10 mg Q6H PRN PO 12/25/17 10:00 12/30/17 09:59 12/27/17 08:49 (Habitrol 21 Mg Patch.24 Hr) 1 patch DAILY T-DERMAL 12/25/17 10:00 12/27/17 08:46 Miscellaneous Information 1 DAILY T-DERMAL 12/26/17 09:00 12/27/17 08:47 (Romazicon Inj) 0.2 mg Q1M PRN IV PUSH 12/25/17 10:00 (Ativan) 1 mg Q4H PRN PO 12/25/17 10:00 (Ativan Inj) 1 mg Q4H PRN IV PUSH 12/25/17 10:00 (Ativan) 2 mg Q2H PRN PO 12/25/17 10:00 (Ativan Inj) 2 mg Q2H PRN IV PUSH 12/25/17 10:00 (Ativan Inj) 2 mg Q1H PRN IV PUSH 12/25/17 10:00 (Ativan Inj) 2 mg Q15M PRN IV PUSH 12/25/17 10:00 (Tylenol) 650 mg Q4H PRN PO 12/25/17 10:00 (Zofran Inj) 4 mg Q6H PRN IV PUSH 12/25/17 10:00 (Mag-Al Plus Susp Liq) 30 ml Q6H PRN PO 12/25/17 10:00 (Restoril) 15 mg HS PRN PO 12/25/17 21:00 12/25/17 21:53 Lactated Ringer's 1,000 ml @ 30 mls/hr Q24H PRN IV 12/26/17 00:45 12/29/17 00:44 (Betadine 5% Antisepsis Kit) 1 applic LEAD TECHNOLOGIST IN CYTOGENETICS PRN EACH NARE 12/26/17 00:45 12/29/17 00:44 (Chlorhexidine 2% Cloth) 3 pack LEAD TECHNOLOGIST IN CYTOGENETICS PRN TOPICAL 12/26/17 00:45 12/29/17 00:44 ([facility] [place] [facility]) ALL NURSING DEPARTME... UNSCH PRN .XX 12/26/17 16:31 12/27/17 16:30 A/P Problem List: (1) Sepsis ICD Code: A41.9 - Sepsis, unspecified organism Status: Acute (2) Foot abscess, left ICD Code: L02.612 - Cutaneous abscess of left foot (3) Cellulitis ICD Code: L03.90 - Cellulitis, unspecified Status: Acute (4) Alcohol abuse ICD Code: F10.10 - Alcohol abuse, uncomplicated (5) Tobacco abuse ICD Code: Z72.0 - Tobacco use Assessment and Plan 32-year-old female with Sepsis 2/2 Left foot abscess/cellulitis +UTI? Currently on IV antibiotics including clindamycin and doxy 5/4 blood cultures negative x2. Continue IV antibiotics. Sepsis clinically resolving. Left foot abscess/cellulitis Foot ultrasound report noted and reviewed with finding of 5 x 10 mm fluid collection in the plantar soft tissue Will consult Podiatry for evaluation for possible I&D Currently on IV antibiotics including clindamycin and doxy 5/4 Sp I and D by podiatry. Will change pain control. Start on Tramadol and change Toradol for breakthrough pain. Abnormal UA 5/4 Urine culture concordant w contamination. Tobaccoism Tobacco counselling cessation provided Start Nicotine Patch Alcohol abuse Alcohol cessation counselling provided Start Rally pack, CIWA 12/26 NO evidence of withdrawal. DVT prophylaxis Add Lovenox SQ Discharge Planning Continue to monitor in the medical floor. Will need podiatry clearance. Problem Qualifiers (1) Cellulitis: Qualified Codes: L03.116 - Cellulitis of left lower limb Jeremy Cronin MD December 26, 2017 19:02
[2017-12-26 20:00] VITALS: BP 126/59; PULSE 77; RESP 20; TEMP 97.6; O2SAT 99
[2017-12-27] VITALS (9 sets, daily range): BP systolic 116–126; BP diastolic 57–70; PULSE 64–75; RESP 17–20; TEMP 97.2–97.7; O2SAT 96–100
[2017-12-27] MEDS: KETOROLAC TROMETHAMINE 10 MG TAB PO PRN ×2 (01:45→08:49)
[2017-12-27] MEDS: CLINDAMYCIN 600 MG/NS PREMIX 50 ML IV SCH ×2 (08:46→15:31)
[2017-12-27] MEDS: DOXYCYCLINE HYCLATE 100 MG TAB PO SCH ×2 (08:46→21:38)
[2017-12-27] MEDS: NICOTINE 21 MG/24 HR PATCH T-DERMAL SCH (08:46)
[2017-12-27] MEDS: REMOVE OLD PATCH T-DERMAL SCH (08:47)
[2017-12-27] MEDS: SODIUM CHLORIDE 0.9% FLUSH 10 ML FLUSH IV FLUSH SCH ×2 (08:49→21:40)
[2017-12-27] MEDS ORDERED: traMADol HCL 50 MG TAB PO PRN (09:45)
[2017-12-27] MEDS: ENOXAPARIN SODIUM 40 MG/0.4 ML SYRINGE SQ SCH (11:10)
[2017-12-27] MEDS: KETOROLAC TROMETHAMINE 30 MG/ML (IVP) VIAL IV PUSH PRN ×2 (11:30→21:40)
--- NOTE | 2017-12-27 14:52 | HHI.PR ---
Subjective Remarks Deferred entry, patient seen earlier at 11 AM. Patient states pain is controlled. Denies fevers or chills. Denies chest pain or shortness of breath. Denies diarrhea. Objective Vitals Vital Signs Date Time Temp Pulse Resp B/P (MAP) Pulse Ox O2 Delivery O2 Flow Rate FiO2 12/27/17 12:00 97.2 73 18 122/63 (82) 100 12/27/17 10:34 72 12/27/17 08:00 97.7 72 18 116/59 (78) 97 12/27/17 06:00 97.5 65 20 126/69 (88) 96 12/27/17 04:16 20 12/27/17 00:00 97.5 68 20 119/64 (82) 99 12/26/17 20:00 97.6 77 20 126/59 (81) 99 12/26/17 16:32 97.9 70 16 123/64 (83) 98 Room Air 12/26/17 16:30 90 16 120/75 (90) 100 Room Air 12/26/17 16:28 97.7 84 16 120/81 (94) 100 I/O 12/26/17 12/26/17 12/26/17 12/27/17 12/27/17 12/27/17 07:00 15:00 23:00 07:00 15:00 23:00 Intake Total 290 ml 50 ml 980 ml 240 ml Output Total 5 ml 900 ml Balance 290 ml 50 ml 975 ml -660 ml Intake Oral 240 ml 480 ml 240 ml IV Total 50 ml 50 ml Other 500 ml Output Urine Total 900 ml Estimated Blood Loss 5 ml # Voids 3 5 # Bowel Movements 0 0 Result Diagram: 12/26/17 0707 12/26/17 0707 Imaging Last Impressions Lower Extremity Ultrasound 12/25/17 0000 Signed Impressions: Service Date/Time: December 08:14 - CONCLUSION: 5 x 10 mm fluid collection in the plantar soft tissues of the foot. Bobby Lambert MD Foot X-Ray 12/24/172202 Signed Impressions: Service Date/Time: Sunday, December 24, 2017 22:33 - CONCLUSION: Negative exam. No fracture. No radiopaque foreign body. Morales Raphael MD Objective Remarks GENERAL: NAD SKIN: Warm and dry. Covered by dressing and cling and hause which is C/D/I HEAD: Normocephalic. EYES: No scleral icterus. No injection or drainage. NECK: Supple, trachea midline. No JVD or lymphadenopathy. CARDIOVASCULAR: Regular rate and rhythm without murmurs, gallops, or rubs. RESPIRATORY: Breath sounds equal bilaterally. No accessory muscle use. GASTROINTESTINAL: Abdomen soft, non-tender, nondistended. MUSCULOSKELETAL: No cyanosis, or edema. BACK: Nontender without obvious deformity. No CVA tendernes Medications and IVs Current Medications Medications (Trade) Dose Ordered Sig/Johanna Route Start Time Stop Time Status Last Admin Clindamycin/ Sodium Chloride 50 ml @ 100 mls/hr Q8H IV 12/25/17 08:00 12/27/17 08:46 (Vibratab) 100 mg Q12HR PO 12/25/17 09:00 12/27/17 08:46 (NS Flush) 2 ml UNSCH PRN IV FLUSH 12/25/17 00:30 (NS Flush) 2 ml BID IV FLUSH 12/25/17 09:00 12/27/17 08:49 (Narcan Inj) 0.4 mg UNSCH PRN IV PUSH 12/25/17 00:30 (Habitrol 21 Mg Patch.24 Hr) 1 patch DAILY T-DERMAL 12/25/17 10:00 12/27/17 08:46 Miscellaneous Information 1 DAILY T-DERMAL 12/26/17 09:00 12/27/17 08:47 (Romazicon Inj) 0.2 mg Q1M PRN IV PUSH 12/25/17 10:00 (Ativan) 1 mg Q4H PRN PO 12/25/17 10:00 (Ativan Inj) 1 mg Q4H PRN IV PUSH 12/25/17 10:00 (Ativan) 2 mg Q2H PRN PO 12/25/17 10:00 (Ativan Inj) 2 mg Q2H PRN IV PUSH 12/25/17 10:00 (Ativan Inj) 2 mg Q1H PRN IV PUSH 12/25/17 10:00 (Ativan Inj) 2 mg Q15M PRN IV PUSH 12/25/17 10:00 (Tylenol) 650 mg Q4H PRN PO 12/25/17 10:00 (Zofran Inj) 4 mg Q6H PRN IV PUSH 12/25/17 10:00 (Mag-Al Plus Susp Liq) 30 ml Q6H PRN PO 12/25/17 10:00 (Restoril) 15 mg HS PRN PO 12/25/17 21:00 12/25/17 21:53 Lactated Ringer's 1,000 ml @ 30 mls/hr Q24H PRN IV 12/26/17 00:45 12/29/17 00:44 (Betadine 5% Antisepsis Kit) 1 applic SOCIAL MEDIA MANAGER PRN EACH NARE 12/26/17 00:45 12/29/17 00:44 (Chlorhexidine 2% Cloth) 3 pack SOCIAL MEDIA MANAGER PRN TOPICAL 12/26/17 00:45 12/29/17 00:44 ([facility] [place] Nursing Information) ALL NURSING DEPARTME... UNSCH PRN .XX 12/26/17 16:31 12/27/17 16:30 (Ultram) 50 mg Q4H PRN PO 12/27/17 09:45 (Toradol Inj) 15 mg Q6H PRN IV PUSH 12/27/17 09:45 01/01/18 09:44 12/27/17 11:30 (Lovenox Inj) 40 mg Q24H SQ 12/27/17 09:45 12/27/17 11:10 A/P Problem List: (1) Sepsis ICD Code: A41.9 - Sepsis, unspecified organism Status: Resolved (2) Foot abscess, left ICD Code: L02.612 - Cutaneous abscess of left foot Status: Acute (3) Cellulitis ICD Code: L03.90 - Cellulitis, unspecified Status: Acute (4) Alcohol abuse ICD Code: F10.10 - Alcohol abuse, uncomplicated Status: Chronic (5) Tobacco abuse ICD Code: Z72.0 - Tobacco use Status: Chronic Assessment and Plan 32-year-old female with Sepsis 2/2 Left foot abscess/cellulitis +UTI? Currently on IV antibiotics including clindamycin and doxy 12/26 blood cultures negative x2. Continue IV antibiotics. Sepsis clinically resolving. 12/27 wound cultures are growing MRSA. Discussed the case with Dr. Norton, from podiatry who stated that the patient could be discharged once the proper antibiotic can be prescribed. Follow-up sensitivities. Left foot abscess/cellulitis Foot ultrasound report noted and reviewed with finding of 5 x 10 mm fluid collection in the plantar soft tissue Will consult Podiatry for evaluation for possible I&D Currently on IV antibiotics including clindamycin and doxy 12/26 Sp I and D by podiatry. Will change pain control. Start on Tramadol and change Toradol for breakthrough pain. 12/27 pain controlled, continue tramadol and Toradol for breakthrough pain. Continue IV clindamycin for now. Abnormal UA 12/26 Urine culture concordant w contamination. Tobaccoism Tobacco counselling cessation provided Start Nicotine Patch Alcohol abuse Alcohol cessation counselling provided Start Rally pack, CIWA 12/26 NO evidence of withdrawal. DVT prophylaxis Continue Lovenox SQ Discharge Planning Discharge pending sensitivities. Problem Qualifiers (1) Cellulitis: Qualified Codes: L03.116 - Cellulitis of left lower limb Jeremy Cronin MD December 27, 2017 14:52
--- NOTE | 2017-12-27 17:22 | HHI.PR ---
Subjective Remarks Patient seen bedside. States she is now having different pain which is a relief. She states her pain is improved. Objective Vital Signs Date Time Temp Pulse Resp B/P (MAP) Pulse Ox O2 Delivery O2 Flow Rate FiO2 12/27/17 16:00 97.6 71 18 124/70 (88) 100 12/27/17 12:00 97.2 73 18 122/63 (82) 100 12/27/17 10:34 72 12/27/17 08:00 97.7 72 18 116/59 (78) 97 12/27/17 06:00 97.5 65 20 126/69 (88) 96 12/27/17 04:16 20 12/27/17 00:00 97.5 68 20 119/64 (82) 99 12/26/17 20:00 97.6 77 20 126/59 (81) 99 I/O 12/26/17 12/26/17 12/26/17 12/27/17 12/27/17 12/27/17 07:00 15:00 23:00 07:00 15:00 23:00 Intake Total 290 ml 50 ml 980 ml 240 ml Output Total 5 ml 900 ml Balance 290 ml 50 ml 975 ml -660 ml Intake Oral 240 ml 480 ml 240 ml IV Total 50 ml 50 ml Other 500 ml Output Urine Total 900 ml Estimated Blood Loss 5 ml # Voids 3 5 # Bowel Movements 0 0 Result Diagram: 12/26/17 0707 12/26/17 0707 Imaging Last Impressions Lower Extremity Ultrasound 12/25/17 0000 Signed Impressions: Service Date/Time: December 08:14 - CONCLUSION: 5 x 10 mm fluid collection in the plantar soft tissues of the foot. Bobby Lambert MD Foot X-Ray 12/24/172202 Signed Impressions: Service Date/Time: Sunday, December 24, 2017 22:33 - CONCLUSION: Negative exam. No fracture. No radiopaque foreign body. Morales Raphael MD Procedures Left foot incision and drainage DOS: 12/26/17 Other Results Microbiology Date/Time Source Procedure Growth Status 12/24/17 22:30 Blood Peripheral Aerobic Blood Culture - Preliminary NO GROWTH IN 3 DAYS Resulted 12/24/17 22:30 Blood Peripheral Anaerobic Blood Culture - Preliminary NO GROWTH IN 3 DAYS Resulted 12/24/17 22:25 Urine Catheterized Urine Urine Culture - Final 50-100,000 CFU/ML MIXED GRAM POSITIVE... Complete 12/26/17 16:10 Wound Foot Fungal Smear - Final NO FUNGAL ELEMENTS SEEN. 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 DP/PT palpable 2/4. +edema noted to left foot and ankle. Neuro: Gross sensation intact. No hyperalgesia noted to left foot. Derm: Left foot plantar incision with packing in place and skin well coapted. MSK: No gross osseous deformities. Tenderness to palpation to left foot at site of abscess. Medications and IVs Current Medications Medications (Trade) Dose Ordered Sig/Johanna Route Start Time Stop Time Status Last Admin Clindamycin/ Sodium Chloride 50 ml @ 100 mls/hr Q8H IV 12/25/17 08:00 12/27/17 15:31 (Vibratab) 100 mg Q12HR PO 12/25/17 09:00 12/27/17 08:46 (NS Flush) 2 ml UNSCH PRN IV FLUSH 12/25/17 00:30 (NS Flush) 2 ml BID IV FLUSH 12/25/17 09:00 12/27/17 08:49 (Narcan Inj) 0.4 mg UNSCH PRN IV PUSH 12/25/17 00:30 (Habitrol 21 Mg Patch.24 Hr) 1 patch DAILY T-DERMAL 12/25/17 10:00 12/27/17 08:46 Miscellaneous Information 1 DAILY T-DERMAL 12/26/17 09:00 12/27/17 08:47 (Romazicon Inj) 0.2 mg Q1M PRN IV PUSH 12/25/17 10:00 (Ativan) 1 mg Q4H PRN PO 12/25/17 10:00 (Ativan Inj) 1 mg Q4H PRN IV PUSH 12/25/17 10:00 (Ativan) 2 mg Q2H PRN PO 12/25/17 10:00 (Ativan Inj) 2 mg Q2H PRN IV PUSH 12/25/17 10:00 (Ativan Inj) 2 mg Q1H PRN IV PUSH 12/25/17 10:00 (Ativan Inj) 2 mg Q15M PRN IV PUSH 12/25/17 10:00 (Tylenol) 650 mg Q4H PRN PO 12/25/17 10:00 (Zofran Inj) 4 mg Q6H PRN IV PUSH 12/25/17 10:00 (Mag-Al Plus Susp Liq) 30 ml Q6H PRN PO 12/25/17 10:00 (Restoril) 15 mg HS PRN PO 12/25/17 21:00 12/25/17 21:53 Lactated Ringer's 1,000 ml @ 30 mls/hr Q24H PRN IV 12/26/17 00:45 12/29/17 00:44 (Betadine 5% Antisepsis Kit) 1 applic TERRAZZO MECHANIC HELPER PRN EACH NARE 12/26/17 00:45 12/29/17 00:44 (Chlorhexidine 2% Cloth) 3 pack TERRAZZO MECHANIC HELPER PRN TOPICAL 12/26/17 00:45 12/29/17 00:44 (Ultram) 50 mg Q4H PRN PO 12/27/17 09:45 (Toradol Inj) 15 mg Q6H PRN IV PUSH 12/27/17 09:45 01/01/18 09:44 12/27/17 11:30 (Lovenox Inj) 40 mg Q24H SQ 12/27/17 09:45 12/27/17 11:10 Assessment and Plan Assessment and Plan 32 year old female with left plantar foot abscess Patient examined and evaluated with all questions answered Packing pulled form left foot Dressed left foot with adaptic and DSD Nursing to change dressing with adaptic and DSD prior to discharge Ok to DC once cultures are finalized and patient is placed on appropriate outpatient abx therapy Jessica Henderson DPM December 27, 2017 17:22
[2017-12-28] VITALS: BP 124/68; PULSE 68; RESP 17; TEMP 97; O2SAT 98
[2017-12-28] MEDS: CLINDAMYCIN 600 MG/NS PREMIX 50 ML IV SCH ×2 (03:16→08:22)
[2017-12-28 04:00] VITALS: BP 116/58; PULSE 70; RESP 17; TEMP 97.7; O2SAT 97
[2017-12-28 08:00] VITALS: BP 115/60; PULSE 75; RESP 17; TEMP 98.4; O2SAT 98
[2017-12-28] MEDS: REMOVE OLD PATCH T-DERMAL SCH (08:22)
[2017-12-28] MEDS: SODIUM CHLORIDE 0.9% FLUSH 10 ML FLUSH IV FLUSH SCH (08:22)
[2017-12-28] MEDS: DOXYCYCLINE HYCLATE 100 MG TAB PO SCH (08:22)
[2017-12-28] MEDS: NICOTINE 21 MG/24 HR PATCH T-DERMAL SCH (08:22)
[2017-12-28] MEDS: ENOXAPARIN SODIUM 40 MG/0.4 ML SYRINGE SQ SCH (09:45)
[2017-12-28] MEDS ORDERED: TRAM50 PO (10:52)
[2017-12-28] MEDS ORDERED: DOXY100T PO ×2 (10:52→11:04)
[2017-12-28] MEDS ORDERED: NICO21DI25 T-DERMAL (10:52)
[2017-12-28] MEDS ORDERED: KETO10 PO (11:07)
[2017-12-28] MEDS ORDERED: LACTTAB8 PO (11:07)
--- NOTE | 2017-12-28 11:09 | HHI.DCPOC ---
Discharge Care Plan Diagnosis: (1) Foot abscess, left (2) Sepsis (3) Tobacco abuse (4) Cellulitis (5) Alcohol abuse Goals to Promote Your Health * To prevent worsening of your condition and complications * To maintain your health at the optimal level Directions to Meet Your Goals Take your medications as prescribed Follow your dietary instruction Follow activity as directed Keep your appointments as scheduled Take your immunizations and boosters as scheduled If your symptoms worsen call your PCP, if no PCP go to Urgent Care Center or Emergency Room Smoking is Dangerous to Your Health. Avoid second hand smoke Call the 24-hour hour crisis hotline for domestic abuse at Jeremy Cronin MD December 28, 2017 11:09
--- NOTE | 2017-12-28 11:09 | HHI.DS ---
Discharge Summary Admission Date December 24, 2017 at 23:59 Discharge Date: December 28, 2017 Admitting Diagnosis sepsis, cellulitis failed outpatient meds (1) Sepsis ICD Code: A41.9 - Sepsis, unspecified organism Status: Resolved (2) Foot abscess, left ICD Code: L02.612 - Cutaneous abscess of left foot Status: Acute (3) Cellulitis ICD Code: L03.90 - Cellulitis, unspecified Status: Acute (4) Alcohol abuse ICD Code: F10.10 - Alcohol abuse, uncomplicated Status: Chronic (5) Tobacco abuse ICD Code: Z72.0 - Tobacco use Status: Chronic Brief History - From Admission 32-year-old female presents to the emergency department for evaluation of acutely worsening left foot pain. The patient reports she sustained an injury to her foot on Friday but is unsure of exactly what happened. She reports she was out on a boat that day and later on in the evening she developed redness and swelling around what appears to be a puncture site on the bottom of the left foot. The patient went to [facility] where she was given Bactrim. Despite compliance with the medication, the patient's foot continued to swell and currently is much more painful than prior. She reports she cannot put weight on it and has to walk on the ball of her foot. No chest pain or shortness of breath. No fever/chills. No abdominal pain. No nausea/vomiting/ diarrhea. No weakness/fatigue. CBC/BMP: 12/26/17 0707 12/26/17 0707 Significant Findings Laboratory Tests Test 12/26/17 07:07 Monocytes (%) (Auto) 11.3 % (0.0-8.0) Monocytes # (Auto) 1.2 TH/MM3 (0-0.9) Imaging Last Impressions Lower Extremity Ultrasound 12/25/17 0000 Signed Impressions: Service Date/Time: December 08:14 - CONCLUSION: 5 x 10 mm fluid collection in the plantar soft tissues of the foot. Bobby Lambert MD Foot X-Ray 12/24/172202 Signed Impressions: Service Date/Time: Sunday, December 24, 2017 22:33 - CONCLUSION: Negative exam. No fracture. No radiopaque foreign body. Morales Raphael MD PE at Discharge GENERAL: NAD SKIN: Warm and dry. Covered by dressing and cling and hause which is C/D/I HEAD: Normocephalic. EYES: No scleral icterus. No injection or drainage. NECK: Supple, trachea midline. No JVD or lymphadenopathy. CARDIOVASCULAR: Regular rate and rhythm without murmurs, gallops, or rubs. RESPIRATORY: Breath sounds equal bilaterally. No accessory muscle use. GASTROINTESTINAL: Abdomen soft, non-tender, nondistended. MUSCULOSKELETAL: No cyanosis, or edema. BACK: Nontender without obvious deformity. No CVA tendernes Pt Condition on Discharge: Stable Discharge Disposition: Discharge Home Discharge Time: > 30 minutes Discharge Instructions DIET: Follow Instructions for: As Tolerated, No Restrictions Activities you can perform: Weight Bearing as Osmin Activities to Avoid: Prolonged Standing, Strenuous Activity Jeremy Cronin MD December 28, 2017 11:09
[2017-12-28] MEDS ORDERED: ZOFR4TAB PO (11:13)
[2017-12-28] MEDS: KETOROLAC TROMETHAMINE 30 MG/ML (IVP) VIAL IV PUSH PRN (11:31)
[2017-12-28 12:00] VITALS: BP 126/67; PULSE 74; RESP 17; TEMP 97.7; O2SAT 99
== END 2017-12-28 15:17 | disposition home or self-care (01) | DRG 872 ==
LOC: NEPC 21:49 → NEDA 23:59 → N07B 12-25 01:55
PROVIDERS: ADMIT Hospitalist; ATTEND Hospitalist
PROC: 0Y9N0ZZ Drainage of Left Foot, Open Approach (ICD-10-PCS; principal; 2017-12-26 15:39)
DX: A41.9 Sepsis, unspecified organism (principal); S91.332A Puncture wound without foreign body, left foot, initial encounter; N39.0 Urinary tract infection, site not specified; L03.116 Cellulitis of left lower limb; L02.612 Cutaneous abscess of left foot; F10.10 Alcohol abuse, uncomplicated; F12.90 Cannabis use, unspecified, uncomplicated; F17.210 Nicotine dependence, cigarettes, uncomplicated; W26.9XXA Contact with unspecified sharp object(s), initial encounter
CPT/HCPCS: 73620; 76882; 76937; 80048; 80053; 81001; 83605; 85025; 86403; 87015; 87040; 87070; 87086; 87102; 87116; 87147; 87186; 87205; 87206; 90471; 90714; 96365; E0113; J1100; J1650; J1885; J2250; J2270; J2405; J3010; J3370; J7030; L3260